=== PATIENT | female | born 1940 | race Caucasian/White ===

== ENCOUNTER 2021-03-23 05:56 | Observation (INO) | payer OTHER ==
--- NOTE | 2021-03-18 09:54 | RAD REPORT ---
EXAM DESCRIPTION: RAD - Chest Pa And Lat (2 Views) - 03/18/2021 9:43 am CLINICAL HISTORY: PreOp COMPARISON: CHEST PA AND LAT 2 VIEW dated 02/01/2015; CHEST PA AND LAT 2 VIEW dated 12/23/2014; CHEST PA AND LAT 2 VIEW dated 02/02/2014 FINDINGS: Lines: None. Lungs: No evidence of edema or pneumonia. Pleural: No significant pleural effusions or pneumothorax. Cardiac: The heart size is within normal limits. Bones: No acute fractures. Other: IMPRESSION: No acute cardiopulmonary disease.
[2021-03-18 10:09] LABS: Absolute Lymphocytes (CBC) 3.2 K/uL (0.7-4.9); Basophils % 1.1 % (0-1.3); Hematocrit 45.4 % (36.0-45.0); MPV 8.9 fL (7.6-11.3); RBC Red Blood Cell Count 5.23 M/uL (3.86-4.86)
[2021-03-18 10:15] LABS: Protime INR 0.96
[2021-03-18 10:18] LABS: Potassium 3.5 mmol/L (3.5-5.1)
[2021-03-23] MEDS ORDERED: Ringers Lactate 1,000 ML IV ONE ×3 (06:50→14:12)
[2021-03-23] MEDS ORDERED: CEFAZOLIN/SWI 2gm 2 GM/20 ML SYR ONE (06:51)
[2021-03-23] MEDS ORDERED: FENTANYL CITR 100 MCG/2 ML ONE (07:13)
[2021-03-23] MEDS ORDERED: LIDOCAINE 1% MPF 5 ML VIAL ONE (07:13)
[2021-03-23] MEDS ORDERED: NS 0.9% VIAL 10 ML ONE ×2 (07:13→08:12)
[2021-03-23] MEDS ORDERED: MIDAZOLAM HCL 2 MG/2 ML INJ ONE (07:14)
[2021-03-23] MEDS ORDERED: dexAMETHasone 4 MG/ML VIAL ONE ×2 (07:14→08:10)
[2021-03-23] MEDS ORDERED: BUPIVACAINE 0.25% PF 30 ML VIAL ONE (07:14)
[2021-03-23] MEDS ORDERED: propofoL 200 MG/20 ML VIAL IV ONE (07:57)
[2021-03-23] MEDS ORDERED: LIDOCAINE 2% MPF 5 ML VIAL ONE (07:57)
[2021-03-23] MEDS ORDERED: TRANEXAMIC ACID 1,000 MG in NA CHLORIDE 0.9% 50 ML IV ONE (08:00)
[2021-03-23] MEDS ORDERED: ONDANSETRON 4 MG/2 ML VIAL ONE ×2 (08:07→11:22)
[2021-03-23] MEDS ORDERED: KETAMINE HCL 500 MG/5 ML VIAL ONE (08:07)
[2021-03-23] MEDS ORDERED: KETOROLAC 30 MG/ML INJ ONE (08:07)
[2021-03-23] MEDS ORDERED: HYDROMORPHONE HCL 1 MG/ML INJ ONE ×2 (08:08→11:22)
[2021-03-23] MEDS ORDERED: Phenylephrine HCl 10 MG/ML 1 ML VIAL ONE (09:04)
--- NOTE | 2021-03-23 10:31 | P.BOP ---
Preoperative diagnosis: right knee osteoarthritis Postoperative diagnosis: same Primary procedure: right total knee arthroplasty Time Study Technician: NONE,NONE Estimated blood loss: 20 cc Specimen: right knee bone remnants Findings: see dictation Anesthesia: General Complications: None Drain(s): Urinary catheter Implants: Biomet Bonifacio Persona 5 STD CR femur, D tibia, 11 CR poly, 29 patella Fluids & blood products: per anesthesia record: TT: 76 mins @ 300 mmHg Transferred to: Recovery Room Condition: Good
[2021-03-23] MEDS ORDERED: DOCUSATE NA 100 MG CAP PO PRN (10:34)
[2021-03-23] MEDS ORDERED: ONDANSETRON 4 MG/2 ML VIAL IV PRN (10:34)
[2021-03-23] MEDS ORDERED: TRAMADOL HCL 50 MG TAB PO PRN (10:37)
--- NOTE | 2021-03-23 11:01 | RAD REPORT ---
EXAM DESCRIPTION: RAD - Knee Right 2 View - 03/23/2021 10:45 am CLINICAL HISTORY: Post Op COMPARISON: Knee Right 3 View dated 08/05/2020 FINDINGS: No acute fracture. Immediate postoperative changes from right total knee arthroplasty. No hardware complications. Gas and fluid within the joint which is not unexpected. IMPRESSION: Status post right total knee arthroplasty without evidence of immediate hardware complic ations.
[2021-03-23 11:24] LABS: Hematocrit 39.1 % (36.0-45.0)
[2021-03-23] MEDS ORDERED: GLYCOPYRROLATE 0.2 MG/ML SYR ONE (13:00)
[2021-03-23] MEDS: HYDROCODONE/APAP 7.5/325 MG TAB PO PRN ×2 (13:50→20:29)
[2021-03-23] MEDS ORDERED: HYDROCODONE/APAP 7.5/325 MG TAB ONE (14:12)
--- OUTSIDE RECORDS SUMMARY | 2021-03-23 14:29 | XMS REPORT | Continuity of Care Document ---
:1940 Author Organization [facility] t Address [address] [place] [address] Care Team Providers Name Role Phone Asked, Pcp Primary Care Physician Unavailable Ovi Ruiz MD Attending Clinician Sajan Damico MD Attending Clinician Payers Payer Name Policy Type Policy Number Effective Date Expiration Date S ource Problems Condition Condition Condition Status Onset Resolution Last Treating Co mments Source Name Details Category Date Date Treatment Clinician Date Stroke Stroke Disease Active Overview: Method i 02-[address] 00:00: g of this [facility]osp[facility] 00 note l might be different from the original. Pt writes"I believe I had a little stroke January 24, 2017. Allergies, Adverse Reactions, Alerts Allergy Allergy Status Severity Reaction(s) Onset Inactive Treating Comm ents Source Name Type Date Date Clinician Lisinopr Adverse Active Info Not [facility] Reaction Available [facility] [place] [facility] Family History Family Member Diagnosis Comments Start Date Stop Date Source Natural daughter No Known Problems [facility] Natural [facility] father [facility] Paternal grandfather [facility] Social History Social Habit Start Date Stop Date Quantity Comments Source Alcohol Comment 2017-08-08 2017-08-08 gin and tonic Method ist 00:00:00 00:00:00 sun and fridays Hospital Tobacco use and 2017-08-08 2017-08-08 Never used [facility] exposure 00:00:00 00:00:00 Hospital Alcohol intake 2017-08-08 2017-08-08 Current drinker [facility] 00:00:00 00:00:00 of alcohol Hospital (finding) Tobacco Comment 2017-02-14 2017-02-14 2-3 cigs twice a Met [facility] 00:00:00 00:00:00 week wed and Hospital fridays Sex Ass[birth year] At [birth year] [facility] 00:00:00 00:00:00 Hospital Smoking Status Start Date Stop Date Source Current some day smoker 2017-08-08 00:00:00 [facility] Medications Ordered Filled Start Stop Current Ordering Indication Dosage Frequency Signature Comments Components Source Medication Medication Date Date Medication? Clinician (SIG) Name Name OMEGA-3 2018- Yes Take by Methodi FATTY -[address] ACIDS/FISH 19:58: daily Hospit a OIL (OMEGA 17 l 3 FISH OIL ORAL) NIACIN ORAL 2017-0 Yes Take by Met hodi 1-[address] 19:58: Hospita 17 l MAGNESIUM 2018-0 Yes Take by Metho di ORAL 1-[address] 19:58: hs Hospita 17 l POTASSIUM 2018-0 Yes Take by Metho di ORAL 1-[address] 19:58: dialy Hospita 17 l simvastatin 2017- Yes TK 1 T PO M ethodi (ZOCOR) 10 2-[address] MG tablet 00:00: Hospita 00 l chlorthalid 2017-0 Yes TK 1 T PO M ethodi one 7-[address] (HYGROTEN) 00:00: Hospita 25 MG 00 l tablet sertraline 2017-0 Yes TK 1 T PO Me thodi (ZOLOFT) 50 6-[address] MG tablet 00:00: Hospita 00 l Niacin Niacin Yes [facility] 1 tablet [facility] Chlorthalid Chlorthalid Yes Guy [address] [facility] one [facility] in the [facility] Fish Oil Fish Oil Yes Guy [address] [facility] [facility] Zoloft Zoloft Yes Guy 1 tablet [facility] Simvastatin Simvastatin Yes Guy take [address] [facility] [facility] tablet [facility] once daily [facility] Klor-Con 10 Klor-Con 10 Yes Guy [address] [facility] with [facility] Dulcolax Dulcolax Yes Guy [address] [facility] as needed [facility] Immunizations Ordered Filled Immunization Date Status Comments [facility] e Immunization Name Name Covid-19 Vaccine 2020-09-[address] [facility] (Pf) 00:00:00 [facility] ([employer]) Covid-19 Vaccine 2020-09-[address] [facility] [facility] - Mrna (Pf) 00:00:00 [facility] ([employer]) FluAD FluAD 2018-04-[address] [facility] 00:[facility]00 [facility] Procedures This patient has no known procedures. Plan of Care Planned Activity Planned Date Details Comments Source Future Scheduled 2021-03-09 INFLUENZA VACCINE (#1) [facility] Test 00:00:00 [code = INFLUENZA Medical Ce nter VACCINE (#1)] Future Scheduled 2020-07-09 FALLS RISK SCREENING [facility] Test 00:00:00 [code = FALLS RISK Medical C enter SCREENING] Future Scheduled 2020-07-09 Medicare IPPE (WELCOME [facility] 00:[facility]:00 TO MEDICARE) [code = Medical Center Medicare IPPE (WELCOME TO MEDICARE)] Future Scheduled 2020-07-[address] [facility] Test 00:00:00 (12+) [code = Medical Center DEPRESSION SCREENING (12+)] Future Scheduled 1992-01-27 SHINGLES VACCINES ([address] [facility] - Test 00:00:00 of 2) [code = SHINGLES Medic al Center VACCINES (1 of 2)] Future Scheduled 1961 DTAP/TDAP/TD VACCINES [facility] 00:[facility]:00 (1 - Tdap) [code = Medical C enter DTAP/TDAP/TD VACCINES (1 - Tdap)] Future Scheduled 1960-01-27 HEPATITIS C SCREENING [facility] 00:[facility]00 [code = HEPATITIS C Medical Center SCREENING] Future Scheduled COVID-19 VACCINE (1) [facility] Test [code = COVID-19 VACCINE (1)] Future Scheduled SHINGLES VACCINES (#1) M [facility] Hospital Test [code = SHINGLES VACCINES (#1)] Future Scheduled 65+ PNEUMOCOCCAL [facility] Test VACCINE (1 of 1 - PPSV23) [code = 65+ PNEUMOCOCCAL VACCINE (1 of 1 - PPSV23)] Future Scheduled INFLUENZA VACCINE [facility] Hospital Test [code = INFLUENZA VACCINE] Encounters Start End Encounter Admission Attending Care Care Encounter Source Date/Time Date/Time Type Type Clinicians Facility Department ID 2021-03-17 2021-03-17 Outpatient [facility] [id number] [facility] 2021-02-03 2021-02-03 Outpatient [facility] [id number] [facility] 2021-02-03 2021-02-03 Outpatient [facility] [id number] [facility] 2021-01-17 2021-01-17 Outpatient [facility] [id number] [facility] 2021-01-17 2021-01-17 Outpatient [facility] [id number] [facility] 2020-11-22 2020-11-22 Outpatient [facility] [id number] [facility] 2020-11-10 2020-11-10 Outpatient [facility] [id number] [facility] 2020-10-21 2020-10-21 Outpatient [facility] [id number] [facility] 2020-10-18 2020-10-18 Outpatient [facility] [id number] [facility] 2020-09-23 2020-09-23 Immunizamanda Ruiz [facility] [id number] [id number] 13:21:38 13:35:07 on [facility] 2020-09-23 2020-09-23 Immunizamanda Ruiz, [facility] [id number] [id number] 00:[facility] 00:00:00 on [facility] 2020-09-02 2020-09-02 Immunizamanda Ruiz, [facility] [id number] [id number] 16:09:35 16:20:54 on [facility] 2020-08-10 2020-08-10 Outpatient [facility] [id number] [facility] 2020-08-04 2020-08-04 Outpatient [facility] [id number] [facility] 2020-08-04 2020-08-04 Outpatient [facility] [id number] [facility] 2020-07-20 2020-07-20 Outpatient [facility] [id number] [facility] 2020-04-28 2020-04-28 Outpatient [facility] [id number] [facility] 2020-04-15 2020-04-15 Outpatient [facility] [id number] [facility] 2020-04-15 2020-04-15 Outpatient [facility] [id number] [facility] 2020-01-14 2020-01-14 [facility] [id number] 08:15:00 08:15:00 t unamia - [email or web address] [facility] 2019-05-07 2019-05-07 [facility] [id number] 09:30:00 09:30:00 t [employer] [facility] 2019-03-03 2019-03-03 [facility] [id number] 14:02:59 14:17:59 [place] [id number] [facility] [id number] [facility] [id number] [address] 2018-10-29 2018-10-29 [facility] [id number] 14:00:00 14:00:00 t [employer] [facility] 2018-04-23 2018-04-23 [facility] [id number] 08:15:00 08:15:00 t [employer] [facility] 2017-10-22 2017-10-22 [facility] [id number] 09:30:00 09:30:00 t [employer] [facility] Results This patient has no known results.
[2021-03-23 15:10] VITALS: BMI 29.2
[2021-03-23] MEDS: CEFAZOLIN/SWI 2gm 2 GM/20 ML SYR IVP SCH (17:12)
[2021-03-23] MEDS: MORPHINE 2 MG/ML SYR IV PRN (17:14)
[2021-03-23] MEDS: NIACIN 250 MG PO SCH (20:31)
[2021-03-23 23:00] VITALS: O2SAT 93
--- NOTE | 2021-03-23 23:09 | P.OP ---
Preoperative diagnosis: right knee osteoarthritis Postoperative diagnosis: same Primary procedure: right total knee arthroplasty Secondary procedure: none Anesthesia: general LMA Estimated blood loss: 20 cc Specimen: right knee bone remnants Findings: see dictation Operative Technique: Indication For Procedure: Daniel is a 81 year-old female presenting to my clinic with signs, symptoms and x-ray findings consistent with severe right knee osteoarthritis. I discussed with the patient at length risks and benefits associated with operative and nonoperative treatment. She had failed conservative treatment measures and had significant difficulties with ADLs secondary to her pain. We discussed operative treatment and elected to proceed with right total knee arthroplasty. She expressed understanding and elected to proceed with operative treatment. Description Of Procedure: After informed consent was obtained, the patient was identified in the preoperative holding area. The right lower extremity was marked. The patient was then taken to the PACU where she underwent a right lower extremity adductor canal block performed by Anesthesia. She was then taken to the operating room, transferred to the operating table in supine fashion, and placed under general anesthesia. Her right lower extremity was then prepped and draped in usual sterile fashion. A time-out was initiated. The correct patient and procedure were confirmed and identified. The patient did receive her preoperative prophylactic antibiotics. The right lower extremi ty was then exsanguinated and tourniquet was inflated to 300 mmHg. Approximately 15 cm longitudinal incision was made centered over the anterior aspect of the right knee. Dissection was then taken to the extensor mechanism and a medial parapatellar arthrotomy was performed. The patella was everted and dislocated laterally and the knee was flexed in the fat pad. Medial lateral meniscus and ACL were all excised exposing the distal femur. The patient had an MRI of her right knee preoperatively for surgical planning and creation of cutting blocks. The cutting block was then placed over the distal femur and pins were then placed. The distal femoral cutting block was then placed over the pins. Knee joint was then used to ensure proper depth cut and the distal femur was then cut. The chamfer cutting guide was then placed over the distal end of the femur. Anterior, posterior cuts as well as anterior and posterior chamfer cuts were then made again confirming proper depth of the cut using an Ky wing. Excess bone remnants were then sent to pathology for further evaluation. Next, attention was taken to the proximal tibia. A tibial jig and tibial cutting block was then placed on proximal aspect of the right tibia and locked into position. Pins were then placed and alignment guide was then used to confirm proper alignment of the cut and then coronal and sagittal planes. Once this was confirmed, the cutting jig was placed over the pins and the proximal tibia was cut. Sizing trays were then selected and size 10 mm spacer was used and there was good overall balance in flexion and extension. Next, the trial implants were then placed using the size 5 standard CR femur and a size D tibia with an 11 mm CR poly. There was overall good range of motion and good stability trial implants were then removed. This improved the overall stability of the knee and components. The wound was then irrigated thoroughly with normal saline and the knee was then injected with 30 cc of 0.5% Marcaine both in the posterior capsule and medial and lateral gutters as well as quadriceps tendon and periosteum. The tibia was then punched. The femur was drilled. The cement was then prepared on the back table. Cement was then placed first on the tibial surface followed by size D tibia. Excess cement was removed with [place] elevators. Size 5 standard CR femur was then placed on the distal femur after cement was placed on the distal femur. Excess cement was then removed and a size 11 mm CR trial poly was then placed. The knee was held in extension as the cement hardened. Undersurface of the patella was prepared debriding osteophytes using rongeurs as well as osteophytes had been debrided off the proximal tibia with rongeurs and osteotomes to aid with the medial tightness. Cement was placed on the undersurface of the patella after it was cut and a size 29 patella was placed. Once the cement was hardened, the knee was ranged, there was good overall stability both in flexion, extension and as well as stability with varus and valgus stresses. Trial poly was then removed and a size 11 mm CR poly was then placed and locked into position. The knee was then ranged again. There was good overall range of motion both for flexion and extension with good stability. The wound was then irrigated again thoroughly with normal saline using pulse lavage. Tourniquet was let down. Hemostasis was achieved using Bovie electrocautery. Extensor mechanism was then approximated using a #1 Vicryl bothin interrupted and running fashion. The fascia was then approximated using 0 Vicryl. Subcutaneous tissue was approximated with a 2-0 Vicryl. Skin was approximated using bibiana. Sterile dressings were applied. The patient was awakened and transferred back in stable condition Complications: None Drain(s): Urinary catheter Implants: Biomet Bonifacio Persona 5 CR femur, D tibia, 29 patella, 11 mm CR poly Fluids & blood products: per anesthesia record: TT: 76 mins @ 300 mmHg Transferred to: Recovery Room Condition: Good
[2021-03-24] MEDS: CEFAZOLIN/SWI 2gm 2 GM/20 ML SYR IVP SCH ×2 (01:19→09:49)
[2021-03-24] MEDS: HYDROCODONE/APAP 7.5/325 MG TAB PO PRN ×3 (01:28→14:57)
[2021-03-24] MEDS: ENOXAPARIN 30 MG/0.3 ML SQ SCH ×2 (05:25→09:46)
[2021-03-24 05:58] LABS: Hematocrit 36.5 % (36.0-45.0)
[2021-03-24] MEDS ORDERED: CHLORTHALIDONE 25 MG TAB PO SCH (09:00)
[2021-03-24] MEDS ORDERED: HOME MED 1 EA UNK (Potassium Gluconate [Potassium] 99 MG Tablet) PO SCH (09:00)
[2021-03-24] MEDS ORDERED: MAGNESIUM SULFATE 100 MG PO SCH (09:00)
[2021-03-24] MEDS ORDERED: SERTRALINE HCL 50 MG TAB PO SCH (09:00)
[2021-03-24] MEDS ORDERED: CELECOXIB 100 MG CAPSULE PO SCH (09:00)
[2021-03-24] MEDS: NIACIN 250 MG PO SCH (09:00)
[2021-03-24] MEDS: MORPHINE 2 MG/ML SYR IV PRN (09:47)
[2021-03-24 12:37] VITALS: BP 163/79; TEMP 97.7
--- NOTE | 2021-03-24 13:01 | P.DS ---
Admission Date: 03/23/21 Discharge Date: 03/24/21 Disposition: DC HOME/HOME HEALTH CARE Discharge Condition: GOOD Reason for Admission: s/p R TKA Consultations: none Procedures: R TKA on 03/23/2021 Brief History of Present Illness: Daniel is a 81-year-old female who underwent right total knee arthroplasty on March 23, 2021 and was admitted to the floor in stable condition posto peratively. Hospital Course: Daniel underwent right total knee arthroplasty on March 23, 2021 without complication. She was admitted to the floor postoperatively for pain control and physical therapy. She mobilized well with physical therapy and her vital signs remained stable. She was given enoxaparin for DVT prophylaxis while in the hospital and will be discharged on Xarelto. She will follow up in my clinic in 2 weeks for wound check and staple removal. Vital Signs/Physical Exam: Temp Pulse Resp BP Pulse Ox 97.7 F 72 16 163/79 H 95 03/24/21 12:00 03/24/21 12:00 03/24/21 12:00 03/24/21 12:00 03/24/21 12:00 Laboratory Data at Discharge: WBC 8.70 K/uL (4.3-10.9) 03/18/21 09:51 Hgb 12.5 g/dL (12.0-15.0) 03/24/21 05:19 Hct 36.5 % (36.0-45.0) 03/24/21 05:19 Plt Count 288 K/uL (152-406) 03/18/21 09:51 PT 11.0 SECONDS (9.5-12.5) 03/18/21 09:51 INR 0.96 03/18/21 09:51 APTT 29.4 SECONDS (24.3-36.9) 03/18/21 09:51 Sodium 139 mmol/L (136-145) 03/18/21 09:51 Potassium 3.5 mmol/L (3.5-5.1) 03/18/21 09:51 BUN 27 mg/dL (7-18) H 03/18/21 09:51 Creatinine 0.89 mg/dL (0.55-1.3) 03/18/21 09:51 Glucose 107 mg/dL (74-106) H 03/18/21 09:51 Home Medications: Chlorthalidone [Hygroton 25mg Tab*] 25 mg PO DAILY 08/04/14 Multivitamin [Multivitamins] 1 each PO DAILY 08/04/14 Sertraline [Zoloft*] 50 mg PO DAILY 08/04/14 Cholecalciferol (Vitamin D3) [Vitamin D3] 125 mcg PO DAILY 03/18/21 Magnesium Sulfate 100 mg PO DAILY 03/18/21 Niacin 250 mg PO BID 03/18/21 Potassium Gluconate [Potassium] 99 mg PO DAILY 03/18/21 Hydrocodone 7.5/APAP 325 [Bulverde 7.5/325 mg*] 1 tab PO Q4H PRN tab 03/24/21 Physician Discharge Instructions: Possible keep the dressing clean and dry. She may be weightbearing as tolerated on the right lower extremity. She will begin Xarelto tomorrow March 25 in the morning. She will follow up in clinic in 2 weeks for staple removal. Diet: AHA Activity: Weight bearing as tolerated Followup: Misha Jason MD [ACTIVE - CAN ADMIT] - 1-2 Weeks
== END 2021-03-24 15:08 | disposition home health service (06) ==
LOC: OR 05:56 → 2ND 14:26
PROVIDERS: ADMIT Orthopaedic Surgery Sports Medicine; ATTEND Orthopaedic Surgery Sports Medicine
PROC: 0SRC069 Replacement of Right Knee Joint with Oxidized Zirconium on Polyethylene Synthetic Substitute, Cemented, Open Approach (ICD-10-PCS; principal; 2021-03-23 07:30)
DX: M17.11 Unilateral primary osteoarthritis, right knee (principal); I10 Essential (primary) hypertension; E78.2 Mixed hyperlipidemia; F32.9 Major depressive disorder, single episode, unspecified; Z88.8 Allergy status to other drugs, medicaments and biological substances; Z86.010 Personal history of colon polyps; Z90.710 Acquired absence of both cervix and uterus; Z82.49 Family history of ischemic heart disease and other diseases of the circulatory system
CPT/HCPCS: 85025; 80048; 36415 ×3; 85610; 88304; 88311; 85730; 85018 ×2; 85014 ×2; 71046; 73560; 97110 ×2; 97116 ×2; 97139; 97161; 97530; 94010; 27447; U0002; J2704; J1100 ×2; J2370; J1650 ×2; J2250; J3010; J2270 ×2; J1170 ×2; J0690 ×2; J7120 ×3; J2405 ×2; G0379; G0378 ×2; 88305

== ENCOUNTER 2025-05-04 14:20 | Observation (INO) | payer OTHER ==
[2025-05-04 14:48] LABS: Absolute Lymphocytes (CBC) 3.2 K/uL (0.7-4.9); Hematocrit 42.8 % (36.0-45.0); Hemoglobin 14.8 g/dL (12.0-15.0); MCH 29.9 pg (27.0-35.0); MCHC 34.6 g/dL (32.0-36.0); MCV 86.3 fL (80-100); MPV 8.0 fL (7.6-11.3); Nucleated RBC Absolute Count 0.0 (0-0); Nucleated Red Blood Cells % 0.0 % (0-0); RBC Red Blood Cell Count 4.96 M/uL (3.86-4.86); White Blood Count 10.90 thou/uL (4.3-10.9)
--- NOTE | 2025-05-04 14:49 | RAD REPORT ---
EXAMINATION: Ct Stroke Brain Wo Cont CLINICAL INDICATION: Female, 85 years old.STROKE ALERT TECHNIQUE: Axial CT images from the skull base to the vertex without intravenous contrast. Coronal an d sagittal reformatted images were created from the data set. One or more of the following dose reduction techniques were used: Automated exposure control, adjustment of the mA and/or kV according to patient size, and/or iterative reconstruction. Unless otherwise specified, incidental findings do not require dedicated imaging follow-up. [id number]. COMPARISON: No prior exams FINDINGS: INTRACRANIAL: No acute intracranial hemorrhage. No acute large vascular territory infarct. No hydro cephalus. No mass effect or midline shift. Moderate chronic small vessel ischemic changes. VASCULATURE: No visualized abnormalities in the arteries or dural venous sinuses. SCALP/SKULL: No calvarial fracture identified. No acute soft tissue abnormality. SINUSES: Occluded right maxillary sinus. Mucous retention cyst left maxillary sinus. No significant mastoid fluid. IMPRESSION: No acute intracranial abnormality. The findings were communicated to Dr. Theo An on 05/04/2025 2:43 PM.
--- NOTE | 2025-05-04 14:55 | RAD REPORT ---
EXAMINATION: Neck Angio CLINICAL INDICATION: Female, 85 years old. stroke alert TECHNIQUE: Axial CT images were obtained from the aortic arch to the skull base after intravenous con trast utilizing angiographic protocol with 3D post-processing (maximum intensity projection images, volume rendered images and/or shaded surface rendered images). One or more of the following dose redu ction techniques were used: Automated exposure control, adjustment of the mA and/or kV according to patient size, and/or iterative reconstruction. Unless otherwise specified, incidental findings do not require dedicated imaging follow-up. [id number]. NASCET criteria used. Mild 0-49% stenosis Moderate 50-69% stenosis Severe 70-99% stenosis COMPARISON: No prior exam. FINDINGS: AORTA: Normal RIGHT: - CCA: No flow limiting stenosis (>= 50%). No dissection. - ICA: No flow limiting stenosis (>= 50%). No dissection. - ECA: No flow limiting stenosis (>= 50%). No dissection. LEFT: - CCA: No flow limiting stenosis (>= 50%). No dissection. - ICA: Atherosclerotic changes but no flow limiting stenosis. - ECA: No flow limiting stenosis (>= 50%). No dissection. VERTEBRAL: Left dominant. Both patent. SOFT TISSUE: No significant neck soft tissue abnormalities. The visualized lung apices are clear. 3D images confirm these findings. IMPRESSION: No arterial dissection or stenosis identified within the neck.
[2025-05-04 14:56] LABS: PT Prothrombin Time 11.4 SECONDS (10-13.0); PTT, Activated Partial Thromb 32.1 SECONDS (27.2-37.4); Protime INR 1.01
--- NOTE | 2025-05-04 14:59 | RAD REPORT ---
EXAMINATION: Head angio CLINICAL INDICATION: Female, 85 years old. STROKE ALERT TECHNIQUE: Axial CT images were obtained through the head after intravenous contrast utilizing angiog raphic protocol with 3D post-processing (maximum intensity projection images, volume rendered images and/or shaded surface rendered images). One or more of the following dose reduction technique s were used: Automated exposure control, adjustment of the mA and/or kV according to patient size, and/or iterative reconstruction. Unless otherwise specified, incidental findings do not require dedic ated imaging follow-up. COMPARISON: No prior exam. FINDINGS: RIGHT: ICA: No aneurysm, stenosis, or occlusion. PAULO: No aneurysm, stenosis, or occlusion. MCA: No aneurysm, stenosis, or occlusion. MACHINE SET UP OPERATOR: No aneurysm, stenosis, or occlusion. LEFT: ICA: No aneurysm, stenosis, or occlusion. PAULO: No aneurysm, stenosis, or occlusion. MCA: No aneurysm, stenosis, or occlusion. MACHINE SET UP OPERATOR: No aneurysm, stenosis, or occlusion. Vertebrobasilar: The right vertebral artery terminates in a branch of the PICA. 3D images confirm these findings. IMPRESSION: No occlusion, aneurysm, or hemodynamically significant stenosis identified.
[2025-05-04 15:05] LABS: Anion Gap 8.9 mEq/L (5.0-15.0); BUN Blood Urea Nitrogen 31.0 mg/dL (7-18); Glucose Level 137.0 mg/dL (74-106); Potassium 3.9 mEq/L (3.5-5.1); Troponin High Sensitivity 4.9 pg/mL (<58.9)
--- NOTE | 2025-05-04 15:26 | RAD REPORT ---
EXAM: Chest Single View HISTORY: 85 years Female stroke alert COMPARISON: 03/18/2021 FINDINGS: LUNGS/PLEURA: The lungs are clear. No pleural effusions or pneumothorax. No pulmonary edema. CARDIAC/MEDIASTINUM: The cardiac silhouette is within normal limits. UPPER ABDOMEN: No significant abnormality. BONES: No acute abnormality. LINES/TUBES/OTHER: N/A IMPRESSION: No evidence of acute cardiopulmonary disease.
[2025-05-04] MEDS ORDERED: ASPIRIN 325 MG TAB ONE (15:30)
--- NOTE | 2025-05-04 17:09 | EDPHYS ---
Physician Documentation [facility] Name: Daniel Tobias Age: 85 yrs Sex: Female : 1940 Arrival Date: 05/04/2025 Time: 14:20 Bed 17 Private MD: ED Physician Rolf An HPI: 05/04 14:29 This 85 yrs old Female presents to ER via Unassigned with complaints of S/S of Possible rn Stroke. 14:29 Onset of double vision at 10 AM, now completely resolved. Patient has no complaints at rn this time. Patient states has had TIA in the past and does not take any anticoagulation.. Historical: - Allergies: 14:50 Lisinopril; hb - Immunization history:: Adult Immunizations up to date. - Infectious Disease History:: Denies. - Social history:: Smoking status: Patient denies any tobacco usage or history of. - Family history:: not pertinent. - Hospitalizations: : No recent hospitalization is reported. ROS: 17:05 Constitutional: Negative for fever, chills, and weight loss, Eyes: Positive for double rn vision that has resolved Cardiovascular: Negative for chest pain, palpitations, and edema, Respiratory: Negative for shortness of breath, cough, wheezing, and pleuritic chest pain, Abdomen/GI: Negative for abdominal pain, nausea, vomiting, diarrhea, and constipation, MS/Extremity: Negative for injury and deformity, Skin: Negative for injury, rash, and discoloration, Neuro: Negative for headache, weakness, numbness, tingling, and seizure, Exam: 17:05 Constitutional: This is a well developed, well nourished patient who is awake, alert, rn and in no acute distress. Head/Face: Normocephalic, atraumatic. Eyes: Pupils equal round and reactive to light, extra-ocular motions intact. Lids and lashes normal. Conjunctiva and sclera are non-icteric and not injected. Cornea within normal limits. Periorbital areas with no swelling, redness, or edema. Cardiovascular: Regular rate and rhythm. No pulse deficits. Respiratory: No increased work of breathing, no retractions or nasal flaring. Abdomen/GI: Soft, non-tender MS/ Extremity: Pulses equal, no cyanosis. Neuro: Awake and alert, GCS 15, oriented to person, place, time, and situation. Cranial nerves II-XII grossly intact. Motor strength 5/5 in all extremities. Sensory grossly intact. Cerebellar exam normal. 18:04 ECG was reviewed by the Attending Physician. rn Vital Signs: 14:20 BP 141 / 57; Pulse 86; Resp 18; Temp 98.3(O); Pulse Ox 97% on R/A; Pain 0/10; hb 15:25 ab3 15:30 BP 142 / 56; Pulse 72; Resp 18; Pulse Ox 99% on R/A; ab3 16:00 BP 148 / 73; Pulse 86; Resp 17; Pulse Ox 98% on R/A; ab3 16:30 BP 140 / 61; Pulse 79; Resp 19; Pulse Ox 100% on R/A; Pain 0/10; ab3 17:00 BP 148 / 60; Pulse 72; Resp 18; Pulse Ox 97% on R/A; Pain 0/10; ab3 17:30 BP 147 / 71; Pulse 80; Resp 15; Pulse Ox 98% on R/A; ab3 14:20 Pain Scale: Adult hb 16:30 Pain Scale: Adult ab3 17:00 Pain Scale: Adult ab3 15:25 SEE CODE STROKE PAPER CHARTING ab3 NIH Stroke Scale Scores: 14:30 NIHSS Score: 0 es3 14:50 NIHSS Score: 1 es3 [place] Coma Score: 14:45 Eye Response: spontaneous(4). Motor Response: obeys commands(6). Verbal Response: ab3 oriented(5). Total: 15. MDM: 14:28 Medical Screening Exam initiated rn 14:29 TNKase (Tenecteplase) Screening:. ED course: Not TNK candidate due to complete rn resolution of symptoms. NIH is 0.. 15:01 ED course: is here now, reports that has intermittent double vision episodes rn since yesterday. Had brief diplopia after CT but now resolved once again. Currently has no complaints. Unlikely cerebral infarction causing this waxing and waning symptom. Consulted with Dr. Sommers, given asymptomatic does not recommend TNKase at this time, states most likely cranial nerve abnormality or peripheral problem not central. Will admit for MRI and further evaluation.. 17:05 Differential diagnosis: CVA, TIA, metabolic disorder, Cranial nerve palsy. Data rn reviewed: vital signs, nurses notes, lab test result(s), EKG, radiologic studies, CT scan, plain films, and as a result, I will admit patient. Consideration of Admission/Observation Patient was admitted/placed on observation. Escalation of care including admission/observation considered. Management of patient was discussed with the following:. Independent interpretation of the following test(s) in the Emergency Department CT Scan: My interpretation is CT head images negative for acute hemorrhage per my interpretation. gamer: rate is 79 beats/min, Rhythm is normal sinus rhythm, regular, with no ectopy, Interpretation: normal rate, normal rhythm. Historians other than the Patient: Spouse/Significant Other: Majority of story is from spouse.. Care significantly affected by the following chronic conditions: Hypertension. Counseling: I had a detailed discussion with the patient and/or guardian regarding the historical points, exam findings, and any diagnostic results supporting the discharge/admit diagnosis, lab results, radiology results, the need for further work-up and treatment in the hospital. Response to treatment: the patient's symptoms have resolved after treatment, the patient's condition has returned to base line, the patient is now symptom free, and as a result, I will admit patient. 05/04 14:29 Order name: Basic Metabolic Panel; Complete Time: 15: rn 05/04 14:29 Order name: CBC with Diff; Complete Time: 15: rn 05/04 14:29 Order name: High Sensitivity Troponin; Complete Time: 15: rn 05/04 14:29 Order name: Protime (+inr); Complete Time: 15:29 rn 05/04 14:29 Order name: Ptt, Activated; Complete Time: 15: rn 05/04 15:01 Order name: Glucose, Ancillary Testing; Complete Time: 15: EDMS 05/04 18:28 Order name: CBC with Automated Diff EDMS 05/04 18:28 Order name: CBC with Automated Diff EDMS 05/04 18:28 Order name: Comprehensive Metabolic Panel EDGA 05/04 18:28 Order name: Comprehensive Metabolic Panel EDGA 05/04 14:29 Order name: CT Head Angio; Complete Time: 15:29 rn 05/04 14:29 Order name: CT Neck Angio; Complete Time: 15:29 rn 05/04 14:29 Order name: CT Stroke Brain w/o Contrast; Complete Time: 14:51 rn 05/04 14:29 Order name: Stroke CXR 1 View; Complete Time: 15:29 rn 05/04 14:29 Order name: EKG; Complete Time: 14:29 rn 05/04 18:25 Order name: CONS Physician Consult EDMS 05/04 14:29 Order name: Accucheck; Complete Time: 15:20 rn 05/04 14:29 Order name: Cardiac monitoring; Complete Time: 15:20 rn 05/04 14:29 Order name: EKG - Nurse/Tech; Complete Time: 15:20 rn 05/04 14:29 Order name: IV Saline Lock; Complete Time: 15:20 rn 05/04 14:29 Order name: Labs collected and sent; Complete Time: 15:20 rn 05/04 14:29 Order name: NPO; Complete Time: 15:37 rn 05/04 14:29 Order name: O2 Per Protocol; Complete Time: 15:20 rn 05/04 14:29 Order name: O2 Sat Monitoring; Complete Time: 15:20 rn 05/04 14:29 Order name: Stroke Swallow Screen; Complete Time: 15:20 rn EC:04 Rate is 89 beats/min. Rhythm is regular. QRS [place] is Normal. [place] interval is normal. QRS rn interval is normal. QT interval is normal. No Q waves. T waves are Normal. No ST changes noted. Clinical impression: NSR w/ Non-specific ST/T Changes. Interpreted by me. Reviewed by me. Administered Medications: 15:34 Drug: Aspirin PO 325 mg PO once Route: PO; ab3 17:00 Follow up: Response: No adverse reaction ab3 Point of Care Testing: Blood Glucose: 14:48 Blood Glucose: 124 mg/dL; ab3 Ranges: Critical Glucose Levels:Adult <50 mg/dl or >400 mg/dl <40 mg/dl or >180 mg/dl Disposition Summary: 05/04/25 17:08 Hospitalization Ordered Notes: Hospitalization Status: Observation rn Provider: Good Mckeon rn Location: Telemetry/MedSurg (observation) rn Condition: Stable rn Problem: new rn Symptoms: have improved rn Bed/Room Type: Standard rn Room Assignment: 214(05/04/25 18:50) bd Diagnosis - Diplopia rn Forms: - Medication Reconciliation Form rn - SBAR form rn - Leadership Thank You Letter rn NIH Stroke Scale - NIH Stroke Score Date: 05/04/2025 Time: 14:30 Total Score = 0 10. Dysarthria (speech clarity - read or repeat words) - 0(Normal) 11. Extinction and Inattention (visual/tactile/auditory/spatial/personal) - 0(No abnormality) 1a. Level of Consciousness (LOC) - 0(Alert) 1b. Level of Consciousness (LOC) (Month \T\ Age) - 0(Both) 1c. LOC Commands (Open \T\ Closes Eyes/Law Office Assistant) - 0(Both) 2. Best Gaze (Lateral Gaze Paresis) - 0(Normal) 3. Visual Field Loss - 0(No visual loss) 4. Facial Palsy - 0(Normal) 5a. Left Arm: Motor (10-second hold) - 0(No drift) 5b. Right Arm: Motor (10-second hold) - 0(No drift) 6a. Left Leg: Motor (5-second hold - always test supine) - 0(No drift) 6b. Right Leg: Motor (5-second hold - always test supine) - 0(No drift) 7. Limb Ataxia (finger/nose \T\ heel/patterson - test with eyes open) - 0(Absent) 8. Sensory Loss (pinprick arms/legs/face) - 0(Normal) 9. Best Language: Aphasia (description/naming/reading) - 0(No aphasia) Initials: es3 NIH Stroke Scale - NIH Stroke Score Date: 05/04/2025 Time: 14:50 Total Score = 1 10. Dysarthria (speech clarity - read or repeat words) - 0(Normal) 11. Extinction and Inattention (visual/tactile/auditory/spatial/personal) - 0(No abnormality) 1a. Level of Consciousness (LOC) - 0(Alert) 1b. Level of Consciousness (LOC) (Month \T\ Age) - 0(Both) 1c. LOC Commands (Open \T\ Closes Eyes/Law Office Assistant) - 0(Both) 2. Best Gaze (Lateral Gaze Paresis) - 0(Normal) 3. Visual Field Loss - 1(Partial hemianopia) 4. Facial Palsy - 0(Normal) 5a. Left Arm: Motor (10-second hold) - 0(No drift) 5b. Right Arm: Motor (10-second hold) - 0(No drift) 6a. Left Leg: Motor (5-second hold - always test supine) - 0(No drift) 6b. Right Leg: Motor (5-second hold - always test supine) - 0(No drift) 7. Limb Ataxia (finger/nose \T\ heel/patterson - test with eyes open) - 0(Absent) 8. Sensory Loss (pinprick arms/legs/face) - 0(Normal) 9. Best Language: Aphasia (description/naming/reading) - 0(No aphasia) Initials: es3 Signatures: Dispatcher [employer] EDMS Collette Pérez Roman, MD MD rn Baxter, Heather, RN RN Clare Mon, RN RN ab3 Corrections: (The following items were deleted from the chart) 14:29 14:29 BASIC METABOLIC PANEL+C.LAB.BRZ ordered. EDMS EDMS 14:29 14:29 CBC+H.LAB.BRZ ordered. EDMS EDMS 14:29 14:29 Troponin High Sensitivity+C.LAB.BRZ ordered. EDMS EDMS 14:29 14:29 PROTIME (+INR)+COAG.LAB.BRZ ordered. EDMS EDMS 14:29 14:29 PTT, ACTIVATED+COAG.LAB.BRZ ordered. EDMS EDMS 18:50 17:08 rn tanja
--- NOTE | 2025-05-04 17:09 | ER ---
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 Coronavirus screen: At this time, the client does not indicate any symptoms associated with coronavirus-19. Ebola Screen: No symptoms or risks identified at this time. Initial Sepsis Screen: Does the patient meet any 2 criteria? No. Patient's initial sepsis screen is negative. Does the patient have a suspected source of infection? No. Patient's initial sepsis screen is negative. Risk Assessment: Do you want to hurt yourself or someone else? Patient reports no desire to harm self or others. Onset of symptoms was May 04, 2025 at 10:15. 14:20 Method Of Arrival: Ambulatory hb 14:20 Acuity: ADE 2 hb Stroke Activation: Symtpom onset >3 hours and < 6 hours Physician: ED Attending; Name: ; Notified At: ; Arrived At: Physician: Mid-Level Provider; Name: ; Notified At: ; Arrived At: Physician: [not used]; Name: ; Notified At: ; Arrived At: Physician: [not used]; Name: ; Notified At: ; Arrived At: Physician: [not used]; Name: ; Notified At: ; Arrived At: Historical: - Allergies: 14:50 Lisinopril; hb - Immunization history:: Adult Immunizations up to date. - Infectious Disease History:: Denies. - Social history:: Smoking status: Patient denies any tobacco usage or history of. - Family history:: not pertinent. - Hospitalizations: : No recent hospitalization is reported. Screenin:58 [facility] ED Fall Risk Assessment (Adult) History of falling in the last 3 months, ab3 including since admission Yes- single mechanical fall (1 pt) Confusion or Disorientation No (0 pts) Intoxicated or Sedated No (0 pts) Impaired Gait Yes (1 pt) Mobility Assist Device Used Yes (1 pt) Altered Elimination No (0 pt) Score/Fall Risk Level 3 or more points = High Risk Oriented to surroundings, Maintained a safe environment, Educated pt \T\ family on fall prevention, incl call for assistance when getting out of bed, Assessed \T\ reinforced patient's understanding of fall precautions, Provided non-skid footwear, Hourly rounding (assess needs \T\ fall precautionary measures) done, Implemented a Fall Risk Plan of Care, Utilized family, sitter, or virtual lens cementer as indicated. Abuse screen: Denies threats or abuse. Denies injuries from another. Nutritional screening: No deficits noted. Tuberculosis screening: No symptoms or risk factors identified. Never had TB. [place] Swallow Protocol Brief Cognitive Screen What is your name? Normal, Where are you right now? Normal, What year is it? Normal. Oral Mechanism Examination Facial Symmetry: Normal, Motion: Normal, Lip Closure: Normal, 3 oz Water Swallow Challenge: Pt able to drink all water without stopping, coughing, choking or throat clearing: Yes Result: PASS Notified: Rolf An MD. Assessment: 14:25 Reassessment: CODE STROKE CALLED, PT TO CT VIA WHEELCHAIR WITH LOBITO LUCAS. 14:45 Reassessment: David Vázquez RN to . LANCE Scott-branch operations coordinator at . Reassessment: ab3 SEE PAPER CODE STROKE CHECKLIST AND CHART FOR VSS, [facility] THROUGHOUT ER STAY. General: Appears in no apparent distress. Behavior is calm, cooperative. Pain: Denies pain. Neuro: Level of Consciousness is awake, alert, obeys commands, Oriented to person, place, time, situation, Appropriate for age Reports diplopia, weakness since 1015am todAay. Cardiovascular: No deficits noted. Denies chest pain, shortness of breath, Rhythm is sinus rhythm. Respiratory: No deficits noted. GI: No deficits noted. 14:50 VAN Scoring: Arm Drift: Patients demonstrates NO arm weakness. Patient is VAN Negative. es3 Visual Disturbance: Patient reports double vision. Provider notified of +VAN scoring. Aphasia: No aphasia noted. Neglect: No neglect noted. [place] Swallow Protocol Exclusion Criteria: Unable to remain alert for testing: No NPO for medical/surgical reason by provider order No Head-of-bed restricted <30 degrees Tracheostomy tube present No No thin liquids due to preexisting dysphagia/baseline modified diet thickened liquids No Exclusion Criteria Result: Proceed Brief Cognitive Screen What is your name? Normal, Where are you right now? Normal, What year is it? Normal. Oral Mechanism Examination Facial Symmetry: Normal, Motion: Normal, Lip Closure: Normal, Oral Mechanism Result: Normal. 3 oz Water Swallow Challenge: Pt able to drink all water without stopping, coughing, choking or throat clearing: Yes Result: PASS MD Notified: Rolf An MD. TNKase (Tenecteplase) Screening: Indications:. 15:48 Reassessment: pT ASSITED TO br VIA WC. ab3 17:42 Reassessment: Report to Lance Jacobs- ER Charge; LANCE Sparks out. ab3 18:20 Reassessment: Patient appears in no apparent distress at this time. Patient and/or hb family updated on plan of care and expected duration. Pain level reassessed. Patient is alert, oriented x 3, equal unlabored respirations, skin warm/dry/pink. Vital Signs: 14:20 BP 141 / 57; Pulse 86; Resp 18; Temp 98.3(O); Pulse Ox 97% on R/A; Pain 0/10; hb 15:25 ab3 15:30 BP 142 / 56; Pulse 72; Resp 18; Pulse Ox 99% on R/A; ab3 16:00 BP 148 / 73; Pulse 86; Resp 17; Pulse Ox 98% on R/A; ab3 16:30 BP 140 / 61; Pulse 79; Resp 19; Pulse Ox 100% on R/A; Pain 0/10; ab3 17:00 BP 148 / 60; Pulse 72; Resp 18; Pulse Ox 97% on R/A; Pain 0/10; ab3 17:30 BP 147 / 71; Pulse 80; Resp 15; Pulse Ox 98% on R/A; ab3 14:20 Pain Scale: Adult hb 16:30 Pain Scale: Adult ab3 17:00 Pain Scale: Adult ab3 15:25 SEE CODE STROKE PAPER CHARTING ab3 Vitals: 15:30 Cardiac Rhythm Assessment Sinus rhythm. ab3 16:00 Cardiac Rhythm Assessment Sinus rhythm. ab3 17:00 Cardiac Rhythm Assessment Regular Sinus rhythm. ab3 17:30 Cardiac Rhythm Assessment Sinus rhythm. ab3 [place] Coma Score: 14:45 Eye Response: spontaneous(4). Motor Response: obeys commands(6). Verbal Response: ab3 oriented(5). Total: 15. NIH Stroke Scale Scores: 14:30 NIHSS Score: 0 es3 14:50 NIHSS Score: 1 es3 ED Course: 14:24 Patient arrived in ED. cj3 14:28 Rolf An MD is Attending Physician. rn 14:37 Initial lab(s) drawn, by me, sent to lab. Inserted saline lock: 20 gauge in right hb antecubital area, using aseptic technique. Blood collected. Flushed with 10 mL NS. 14:40 CT Stroke Brain w/o Contrast In Process Unspecified. EDMS 14:41 CT Head Angio In Process Unspecified. EDMS 14:41 CT Neck Angio In Process Unspecified. EDMS 14:50 Triage completed. hb 14:51 Arm band placed on. hb 15:03 EKG done, by ED staff, reviewed by Rolf An MD bedside glucose \T\1448 (124 ng/dl). ab3 15:13 Clare Vázquez, RN is Primary Nurse. ab3 15:19 Stroke CXR 1 View In Process Unspecified. EDMS 15:26 No provider procedures requiring assistance completed. ab3 16:11 back from bathroom via WC without incident. CMs reapplied by RN. ab3 17:07 Good Mckeon MD is Hospitalizing Provider. rn 17:12 No apparent distress. Awaiting bed assignment. warm blanket; given. ab3 Administered Medications: 15:34 Drug: Aspirin PO 325 mg PO once Route: PO; ab3 17:00 Follow up: Response: No adverse reaction ab3 Point of Care Testing: Blood Glucose: 14:48 Blood Glucose: 124 mg/dL; ab3 Ranges: Outcome: 17:08 Decision to Hospitalize by Provider. rn 20:22 Patient left the ED. vk NIH Stroke Scale - NIH Stroke Score Date: 05/04/2025 Time: 14:30 Total Score = 0 10. Dysarthria (speech clarity - read or repeat words) - 0(Normal) 11. Extinction and Inattention (visual/tactile/auditory/spatial/personal) - 0(No abnormality) 1a. Level of Consciousness (LOC) - 0(Alert) 1b. Level of Consciousness (LOC) (Month \T\ Age) - 0(Both) 1c. LOC Commands (Open \T\ Closes Eyes/Facilities Project Manager) - 0(Both) 2. Best Gaze (Lateral Gaze Paresis) - 0(Normal) 3. Visual Field Loss - 0(No visual loss) 4. Facial Palsy - 0(Normal) 5a. Left Arm: Motor (10-second hold) - 0(No drift) 5b. Right Arm: Motor (10-second hold) - 0(No drift) 6a. Left Leg: Motor (5-second hold - always test supine) - 0(No drift) 6b. Right Leg: Motor (5-second hold - always test supine) - 0(No drift) 7. Limb Ataxia (finger/nose \T\ heel/patterson - test with eyes open) - 0(Absent) 8. Sensory Loss (pinprick arms/legs/face) - 0(Normal) 9. Best Language: Aphasia (description/naming/reading) - 0(No aphasia) Initials: es3 NIH Stroke Scale - NIH Stroke Score Date: 05/04/2025 Time: 14:50 Total Score = 1 10. Dysarthria (speech clarity - read or repeat words) - 0(Normal) 11. Extinction and Inattention (visual/tactile/auditory/spatial/personal) - 0(No abnormality) 1a. Level of Consciousness (LOC) - 0(Alert) 1b. Level of Consciousness (LOC) (Month \T\ Age) - 0(Both) 1c. LOC Commands (Open \T\ Closes Eyes/Facilities Project Manager) - 0(Both) 2. Best Gaze (Lateral Gaze Paresis) - 0(Normal) 3. Visual Field Loss - 1(Partial hemianopia) 4. Facial Palsy - 0(Normal) 5a. Left Arm: Motor (10-second hold) - 0(No drift) 5b. Right Arm: Motor (10-second hold) - 0(No drift) 6a. Left Leg: Motor (5-second hold - always test supine) - 0(No drift) 6b. Right Leg: Motor (5-second hold - always test supine) - 0(No drift) 7. Limb Ataxia (finger/nose \T\ heel/patterson - test with eyes open) - 0(Absent) 8. Sensory Loss (pinprick arms/legs/face) - 0(Normal) 9. Best Language: Aphasia (description/naming/reading) - 0(No aphasia) Initials: es3 Signatures: Dispatcher [employer] EDMS Rolf An MD MD rn Baxter, Heather, RN RN hb Stanley, Emily, RN RN es3 Elizabeth Lopez Allie, RN RN ab3 Andreea Barrientos cj3 Corrections: (The following items were deleted from the chart) 18:10 14:51 Reassessment: CODE STROKE CALLED, PT TO CT VIA WHEELCHAIR WITH LOBITO RN hb hb
--- NOTE | 2025-05-04 18:12 | P.HP ---
Certification for Inpatient With expected LOS: >2 Midnights Patient will require the following post-hospital care: None Practitioner: I am a practitioner with admitting privileges, knowledge of patient current condition, hospital course, and medical plan of care. Services: Services provided to patient in accordance with Admission requirements found in Title 42 Section 412.3 of the Code of Federal Regulations Patient History Date of Service: 05/04/25 History of Present Illness: 85-year-old female with a history of transient ischemic attacks who presented to the emergency department via personal vehicle due to concern for stroke. Patient experienced onset of double vision at 10:00 a.m. on the day of presentation, which has now completely resolved. Patient reports no current complaints at the time of evaluation. Patient has a significant history of TIAs but does not take any anticoagulation therapy. Patient also reports that approximately 3 months prior to this presentation, she lost her sense of smell and taste, which intermittently returns for brief periods but is grossly absent most of the time. Patient endorses progressive lower extremity weakness that is equal bilaterally and has been present for a period of a few months. Patient specifically denies dyspnea and denies any one-sided weakness. Patient also denies chest pain. The complete resolution of the double vision symptoms prompted the decision to seek immediate medical evaluation given her history of TIAs. Allergies lisinopril Allergy (Verified 03/18/21 09:13) Cough Home medications list reviewed: Yes Home Medications: Chlorthalidone [Hygroton 25mg Tab*] 25 mg PO DAILY 08/04/14 Multivitamin [Multivitamins] 1 each PO DAILY 08/04/14 Sertraline [Zoloft*] 50 mg PO DAILY 08/04/14 Cholecalciferol (Vitamin D3) [Vitamin D3] 125 mcg PO DAILY 03/18/21 Magnesium Sulfate 100 mg PO DAILY 03/18/21 Niacin 250 mg PO BID 03/18/21 Potassium Gluconate [Potassium] 99 mg PO DAILY 03/18/21 Hydrocodone 7.5/APAP 325 [Deshler 7.5/325 mg*] 1 tab PO Q4H PRN tab 03/24/21 - Past Medical/Surgical History Diabetic: No -: HTN -: HLD -: depression - Social History Place of Residence: Home Review of Systems 10-point ROS is otherwise unremarkable Cardiovascular: Light Headedness Neurological: Weakness, Other (Dizziness ) Physical Examination - Physical Exam General: Alert, In no apparent distress HEENT: Atraumatic, PERRLA, Mucous membr. moist/pink, EOMI, Sclerae nonicteric Neck: Supple, 2+ carotid pulse no bruit, No LAD, Without JVD or thyroid abnormality Respiratory: Clear to auscultation bilaterally, Normal air movement Cardiovascular: Regular rate/rhythm, Normal S1 S2 Gastrointestinal: Normal bowel sounds, No tenderness Musculoskeletal: No tenderness Integumentary: No rashes Neurological: Normal gait, Normal speech, Normal strength at 5/5 x4 extr, Normal tone, Normal affect Lymphatics: No axilla or inguinal lymphadenopathy - Studies Laboratory Data (last 24 hrs) 05/04/25 05/04/25 05/04/25 14:32 14:32 14:32 WBC 10.90 Hgb 14.8 Hct 42.8 Plt Count 343 PT 11.4 INR 1.01 APTT 32.1 Sodium 138 Potassium 3.9 BUN 31 H Creatinine 1.29 H Glucose 137 H Assessment and Plan - Plan History of transient ischemic attacks Double Vision - Presented with transient double vision that completely resolved - Concerning for possible stroke or recurrent TIA. - Given the patient's history of TIAs and current presentation with transient neurological symptoms, stroke evaluation was initiated. - Dr. Sommers was consulted and determined that patient was not a candidate for thrombolytic therapy due to complete resolution of symptoms. - CT brain, CT angiography of head and neck, and laboratory studies were unremarkable. - MRI ordered and pending - Continue to follow-up with neurology for updated recommendations Acute Kidney Injury - Elevated creatinine of 1.29, an increase from baseline of less than 1.0 - Continue to monitor kidney function - Avoid nephrotoxic agents DVT PPx: SCD's CODE STATUS: Full Code Discharge Plan: Home Plan to discharge in: 48 Hours - Advance Directives Does patient have a Living Will: No Does patient have a Durable POA for Healthcare: No - Code Status/Comfort Care Code Status Assessed: Yes (Full Code) Critical Care: No Time Spent Managing Pts Care (In Minutes): 46
[2025-05-04] MEDS: Ringers Lactate 1,000 ML IV SCH (22:09)
[2025-05-05 00:15] VITALS: BMI 27.7
[2025-05-05 04:41] VITALS: O2SAT 98
[2025-05-05 05:11] LABS: Absolute Lymphocytes (CBC) 2.7 K/uL (0.7-4.9); Nucleated RBC Absolute Count 0.0 (0-0); White Blood Count 9.10 thou/uL (4.3-10.9)
[2025-05-05 05:16] LABS: Hematocrit 41.0 % (36.0-45.0); Hemoglobin 14.2 g/dL (12.0-15.0); MCH 29.6 pg (27.0-35.0); MCHC 34.7 g/dL (32.0-36.0); MCV 85.4 fL (80-100); MPV 8.4 fL (7.6-11.3); Nucleated Red Blood Cells % 0.2 % (0-0); RBC Red Blood Cell Count 4.80 M/uL (3.86-4.86)
[2025-05-05 05:30] LABS: ALT/SGPT 16.0 U/L (13-56); AST/SGOT 13.0 U/L (15-37); Albumin 3.3 g/dL (3.4-5.0); Albumin/Globulin Ratio 1.0 (1.1-1.8); Alkaline Phosphatase 52.0 U/L (45-117); Anion Gap 10.3 mEq/L (5.0-15.0); BUN Blood Urea Nitrogen 29.0 mg/dL (7-18); Globulin 3.3 g/dL (2.3-3.5); Glucose Level 106.0 mg/dL (74-106); Potassium 3.3 mEq/L (3.5-5.1)
[2025-05-05] MEDS: FLU (Fluarix) 25-26 (6MOS UP)/PF 45 MCG/0.5 ML Syringe IM ONE (07:55)
[2025-05-05] MEDS: POTASSIUM CL SA 10 MEQ TAB PO ONE (08:28)
[2025-05-05] MEDS ORDERED: ACETAMINOPHEN 500 MG TAB PO PRN (09:21)
[2025-05-05 10:27] LABS: HDL Cholesterol 45.0 mg/dL (40-60); LDL Cholesterol, Calculated 86.0 mg/dL (<130); LDL Cholesterol,Calc NonReport 86.0
--- NOTE | 2025-05-05 11:49 | P.PN ---
Subjective Date of Service: 05/05/25 Subjective: No new changes, Improving Patient was examined while sitting on side of bed after returning from the restroom. Patient reports that double vision has slightly improved since previous day. Discussed resolved acute kidney injury and then continued need for MRI at this time. Discussed PT consult for today. Review of Systems 10-point ROS is otherwise unremarkable General: Weakness Eyes: Vision Change (Improved from previous day) Physical Examination - Vital Signs Temperature: 98.1 F Blood Pressure: 190/81 Pulse: 76 Respirations: 14 Pulse Ox (%): 93 - Physical Exam General: Alert, In no apparent distress HEENT: Atraumatic, PERRLA Neck: Supple Respiratory: Clear to auscultation bilaterally, Normal air movement Cardiovascular: Regular rate/rhythm, Normal S1 S2 Capillary refill: <2 Seconds Gastrointestinal: Normal bowel sounds, No tenderness Musculoskeletal: No tenderness Integumentary: No rashes Neurological: Normal speech, Normal tone, Normal affect Lymphatics: No axilla or inguinal lymphadenopathy - Studies Laboratory Data (last 24 hrs) 05/04/25 05/04/25 05/04/25 14:32 14:32 14:32 WBC 10.90 Hgb 14.8 Hct 42.8 Plt Count 343 PT 11.4 INR 1.01 APTT 32.1 Sodium 138 Potassium 3.9 BUN 31 H Creatinine 1.29 H Glucose 137 H Medications List Reviewed: Yes Assessment And Plan - Plan History of transient ischemic attacks Double Vision, improving - Presented with transient double vision that completely resolved - Concerning for possible stroke or recurrent TIA. - Given the patient's history of TIAs and current presentation with transient neurological symptoms, stroke evaluation was initiated. - Dr. Sommesr was consulted and determined that patient was not a candidate for thrombolytic therapy due to complete resolution of symptoms. - CT brain, CT angiography of head and neck, and laboratory studies were unremarkable. - MRI ordered and pending result - Continue to follow-up with neurology for updated recommendations Acute Kidney Injury, resolved - Admission creatinine of 1.29, an increase from baseline of less than 1.0 - Resolved after IV fluids, creatinine now 0.76 - Continue to monitor kidney function - Avoid nephrotoxic agents DVT PPx: SCD's CODE STATUS: Full Code Discharge Plan: Home Plan to discharge in: 24 Hours - Code Status/Comfort Care Code Status Assessed: Yes (Full code) Critical Care: No Time Spent Managing PTS Care (In Minutes): 25
[2025-05-05] MEDS: CHLORTHALIDONE 25 MG TAB PO SCH (11:51)
--- NOTE | 2025-05-05 15:06 | RAD REPORT ---
EXAMINATION: MRI BRAIN WITHOUT CONTRAST CLINICAL INDICATION: Female, 85 years old.[facility] Hx of TIA/stroke F/u TECHNIQUE: Multiplanar multisequence MR images of the brain were obtained without intravenous contras t. Unless otherwise specified, incidental findings do not require dedicated imaging follow-up. COMPARISON: No prior exam. FINDINGS: INTRACRANIAL: Midline structures are unremarkable. Diffusion-weighted images show no acute or early subacute infarction. There is moderate brain atrophy with moderate confluent T2/FLAIR hyperintensities in the periventricular and deep white matter regions, likely representing chronic mi crovascular ischemic changes. There is no mass effect or midline shift. No abnormal extraaxial fluid collection. Focus of remote microhemorrhage seen on the gradient images near the left vermis. VASCULATURE: Normal signal voids in the larger intracranial arteries and dural venous sinuses. SINUSES: The paranasal sinuses and mastoid air cells are predominantly clear. BONE: The marrow signal pattern is within normal limits. IMPRESSION: No significant intracranial abnormalities. Confluent deep white matter hyperintensity, nonspecific, but may suggest sequelae of chronic small ve ssel ischemic changes.
[2025-05-05 16:53] VITALS: BP 192/86; TEMP 98.2
[2025-05-05] MEDS: LABETALOL 20 MG/4ML SYRINGE IV ONE (16:53)
--- NOTE | 2025-05-05 17:16 | P.DS ---
Admission Date: 05/04/25 Discharge Date: 05/05/25 Disposition: AMA-LEFT AGAINST MEDICAL ADVIC Discharge Condition: GOOD Brief History of Present Illness: 85-year-old female with a history of transient ischemic attacks who presented to the emergency department via personal vehicle due to concern for stroke. Patient experienced onset of double vision at 10:00 a.m. on the day of presentation, which has now completely resolved. Patient reports no current complaints at the time of evaluation. Patient has a significant history of TIAs but does not take any anticoagulation therapy. Patient also reports that approximately 3 months prior to this presentation, she lost her sense of smell and taste, which intermittently returns for brief periods but is grossly absent most of the time. Patient endorses progressive lower extremity weakness that is equal bilaterally and has been present for a period of a few months. Patient specifically denies dyspnea and denies any one-sided weakness. Patient also denies chest pain. The complete resolution of the double vision symptoms prompted the decision to seek immediate medical evaluation given her history of TIAs. Hospital Course: History of transient ischemic attacks Double Vision, improving - Presented with transient double vision that resolved prior to discharging - Initial concern for possible stroke or recurrent TIA. - Given the patient's history of TIAs and current presentation with transient neurological symptoms, stroke evaluation was initiated. - Dr. Sommers was consulted and determined that patient was not a candidate for thrombolytic therapy due to complete resolution of symptoms. - CT brain, CT angiography of head and neck, and laboratory studies were unremarkable. - MRI was completed without acute findings and patient was pending updated Neurology recs prior to leaving AMA - Continue to follow-up with neurology outpatient Acute Kidney Injury, resolved - Admission creatinine of 1.29, an increase from baseline of less than 1.0 - Resolved after IV fluids, creatinine now 0.76 - Continue to monitor kidney function outpatient Uncontrolled HTN - Patient with uncontrolled hypertension and received IV labetalol - Patient left AGAINST MEDICAL ADVICE prior to managing blood pressure appropriately - Patient instructed to continue home medications, monitor BP closely and follow-up with outpatient provider as soon as possible Vital Signs/Physical Exam: Temp Pulse Resp BP Pulse Ox 98.2 F 83 16 192/86 H 96 05/05/25 16:00 05/05/25 16:00 05/05/25 16:00 05/05/25 16:00 05/05/25 16:00 General: Alert, In no apparent distress, Other (Agitated) HEENT: Atraumatic, PERRLA, EOMI Neck: Supple, JVD not distended Respiratory: Clear to auscultation bilaterally, Normal air movement Cardiovascular: Regular rate/rhythm, Normal S1 S2 Capillary refill: <2 Seconds Gastrointestinal: Normal bowel sounds, No tenderness Musculoskeletal: No tenderness Integumentary: No rashes Neurological: Normal speech, Normal tone, Normal affect Lymphatics: No axilla or inguinal lymphadenopathy Laboratory Data at Discharge: WBC 9.10 thou/uL (4.3-10.9) 05/05/25 04:40 Hgb 14.2 g/dL (12.0-15.0) 05/05/25 04:40 Hct 41.0 % (36.0-45.0) 05/05/25 04:40 Plt Count 313 thou/uL (152-406) 05/05/25 04:40 PT 11.4 SECONDS (10-13.0) 05/04/25 14:32 INR 1.01 05/04/25 14:32 APTT 32.1 SECONDS (27.2-37.4) 05/04/25 14:32 Sodium 137 mEq/L (136-145) 05/05/25 04:40 Potassium 3.3 mEq/L (3.5-5.1) L D 05/05/25 04:40 BUN 29 mg/dL (7-18) H 05/05/25 04:40 Creatinine 0.76 mg/dL (0.55-1.02) 05/05/25 04:40 Glucose 106 mg/dL (74-106) 05/05/25 04:40 Total Bilirubin 0.3 mg/dL (0.2-1.0) 05/05/25 04:40 AST 13 U/L (15-37) L 05/05/25 04:40 ALT 16 U/L (13-56) 05/05/25 04:40 Alkaline Phosphatase 52 U/L (45-117) 05/05/25 04:40 Triglycerides 173 mg/dL (<150) H 05/05/25 04:40 Cholesterol 166 mg/dL (<200) 05/05/25 04:40 HDL Cholesterol 45 mg/dL (40-60) 05/05/25 04:40 Cholesterol/HDL Ratio 3.69 05/05/25 04:40 Home Medications: Chlorthalidone [Hygroton 25mg Tab*] 25 mg PO DAILY 08/04/14 Multivitamin [Multivitamins] 1 each PO DAILY 08/04/14 Sertraline [Zoloft*] 50 mg PO DAILY 08/04/14 Niacin 500 mg PO BID 03/18/21 Potassium Gluconate [Potassium] 99 mg PO DAILY 03/18/21 Alendronate Sodium 70 mg PO EVERY 7TH DAY 05/05/25 Turmeric Root Extract [Turmeric Curcumin] 1,000 mg PO BID 05/05/25 Physician Discharge Instructions: Patient to follow-up with PCP, cardiology, and neurology as soon as possible. Monitor blood pressure closely. Diet: Low sodium Activity: No restrictions Followup: Guy Yoder DO [Primary Care Provider] - 1-2 Weeks
--- NOTE | 2025-05-05 22:49 | CON ---
Date of Consultation: 05/04/2025 Chief Complaint: Stroke. History Of Present Illness: Ms. 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 She recovered fully, however, on while driving she suddenly began to see double around 10 a.m. on the morning. She said that diplo naif will occur when looking in distance, but when looking close up, the diplopia would resolve. She denied additional symptoms such as face, arm, or leg numbness or weakness, loss of speech, or any oth er difficulty. She drove herself to the emergency room and at that point, her diplopia resolved. Th e event that occurred previously was at least about 3 months ago and included loss of sense of smell and that did return. She at that point did have some lower extremity weakness bilaterally and again that resolved. Currently, no additional complaints. Her workup included a CT scan of her head showi ng no acute ischemic or hemorrhagic findings. Her brain MRI identified a focus of remote microhemorr manav and near the left vermis. Originally, she had moderate brain atrophy with confluent T2 and flai r hyperintensities in the periventricular and deep white matter representing chronic microvascular is chemic changes. CT angiogram of her neck showed no evidence of dissection in the left and right lópez tids. The vertebral was left dominant. No arterial dissection or stenosis identified within the nec k vessels. CT angiogram of her head showed no significant occlusion, aneurysm or significant stenosi s. Her blood work showed essentially unremarkable complete blood count with differential normal coag ulation panel. The patient given BUN and creatinine were elevated consistent with dehydration. Her calcium was 10.6. She did receive hydration and had a decrease of creatinine 2.76 in normal range. Glucose also within normal range. She had a normal LDL of 86, HDL 45, cholesterol HDL ratio 3.69, tr iglycerides 176, total cholesterol 166. After hydration. Potassium was revealed to be low at 3.3, t hat was addressed. Past Medical History: As noted above. Allergies: LISINOPRIL. Medications: Her current medications Tylenol 500 mg every 6 hours as needed, Fosamax 70 mg every sev enth day, Hygroton 25 mg daily. She did receive influenza vaccine while in hospital, she received Zo loft 50 mg daily, potassium 40 mEq daily. Family History: Noncontributory. Social History: No alcohol, tobacco, or drug use. Review of Systems: Aside from the double vision she denies any recent fevers, chills, nausea, vomiting. No significant myalgias, arthralgias, rash, headache, weight change. No other complaints. Physical Examination: Vital Signs: Blood pressure is elevated up to 102/86, pulse 83, respiratory rate 14, temperature 98. 2, O2 saturation 96%, weight 156 pounds. Height 5 feet 3 inches, BMI . General: Ms. Tobias is sitting side of the bed, ready to go home. She is now ready for discharge. HEENT: She appears normocephalic, atraumatic. Sclerae anicteric. Oropharynx pink and moist. Neck: Supple. Chest: Clear. She does not have any focal cranial nerve deficits. On motor exam, diffusely mildly weak, but no focal deficits proximally and distally and strength 5-/5 upper and lower extremities. S ensation mild stocking-glove loss, light touch temperature. Depressed reflexes upper and lower extre mities. Coordination intact. Gait good stance, stride. Assessment And Plan: Ms. Tobias is an 85-year-old patient with possible transient ischemic attack. She should be continued on aspirin 81 mg daily and Plavix 75 mg daily for about 4 to 6 weeks and jus t on the aspirin. Continue with management for hypertension, which is significantly elevated. Her c holesterol panel is in good state and no high-dose statin recommended at this point. She should foll ow up in Dr. Sommers's clinic in one month after discharge and her primary care physician as scheduled. JAGJIT/DARIO Voice ID: [id number] Report ID: [id number]
[2025-05-06] MEDS ORDERED: SERTRALINE HCL 50 MG TAB PO SCH ×2 (09:00)
[2025-05-06] MEDS ORDERED: CHLORTHALIDONE 25 MG TAB PO SCH (09:00)
[2025-05-12] MEDS ORDERED: ALENDRONATE 70 MG TAB PO SCH (09:00)
== END 2025-05-05 17:45 | disposition left against medical advice (07) ==
LOC: ER 14:20 → ERHOLD 18:22 → 2ND 20:03
PROVIDERS: ADMIT Hospitalist; ATTEND Internal Medicine
DX: H53.2 Diplopia (principal); N17.9 Acute kidney failure, unspecified; I10 Essential (primary) hypertension; Z53.29 Procedure and treatment not carried out because of patient's decision for other reasons
CPT/HCPCS: 93005; 85025 ×2; 80048; 36415; 85610; 80061; 82947; 85730; 84484; 80053; 70496; 70498; 70450; 71045; 70551; 99284; Q9967; J7120; G0378